=== PATIENT | male | born 1985 | race Caucasian/White ===

== ENCOUNTER 2019-03-08 08:18 | Emergency (ER) | payer BC, MEDICAID, OTHER ==
[2019-03-08] MEDS ORDERED: 0.9 % SODIUM CHLORIDE 1,000 ML BAG IV ONE (08:28)
[2019-03-08 08:36] LABS: BASO % 0.4 % (0-6); EOS % 2.8 % (0-6); GRAN % 71.2 % (47-80); HEMATOCRIT 48.8 % (42.0-52.0); HEMOGLOBIN 16.3 gm/dl (14.0-18.0); LYMPH % 17.6 % (16-45); MEAN CELL VOLUME 87.1 fl (81-97); MEAN CORPUSCULAR HEMOGLOBIN 29.1 pg (27-33); MEAN CORPUSCULAR HGB CONC 33.4 g/dl (32-36); MEAN PLATELET VOLUME 9.5 fl (7.4-10.4); PLATELET COUNT 232 K/uL (130-400); RED CELL DISTRIBUTION WIDTH 12.9 % (11.5-14.5)
--- NOTE | 2019-03-08 08:39 | Emergency Department Record ---
History of Present Illness - General Chief Complaint: Trauma Stated Complaint: FALL Time Seen by Provider: 03/08/19 08:28 Source: Patient, RN notes reviewed - History of Present Illness Initial Comments: Fell out of a tree 2.5 hours ago and walked out of the pedraza with astick and he is complaining of left ankle and left knee pain. No LOC , no head or neck pain and no spine pain no chest of abd pain and he is alert and oriented times 3. Fell 20 to 25 feet. MD Complaint: Fall - Related Data Previous Rx's Medication Instructions Recorded Hydrocodone/Acetaminophen [[place] 1 each PO Q4HR #18 tablet 03/08/19 5-325 Tablet] Ibuprofen [Motrin 600Mg] 600 mg PO Q6H #30 tablet 03/08/19 Allergies Allergy/AdvReac Type Severity Reaction Status Date / Time peanut Allergy PT UNSURE Verified 03/08/19 08:46 OF REACTION shellfish derived Allergy ANAPHYLAXIS Verified 03/08/19 08:43 Review of Systems Reviewed: No additional complaints except as noted below Constitutional: Reports: As per HPI. Denies: Chills, Fever, Malaise, Night sweats, Weakness, Weight change Eyes: Reports: As per HPI. Denies: Eye discharge, Eye pain, Photophobia, Vision change ENT: Reports: As per HPI. Denies: Congestion, Dental pain, Ear pain, Epistaxis, Hearing loss, Throat pain Respiratory: Reports: As per HPI. Denies: Cough, Dyspnea, Hemoptysis, Stridor, Wheezes Cardiovascular: Reports: As per HPI. Denies: Arrhythmia, Chest pain, Dyspnea on exertion, Edema, Murmurs, Orthopnea, Palpitations, Paroxysmal nocturnal dyspnea, Rheumatic Fever, Syncope Endocrine: Reports: As per HPI. Denies: Fatigue, Heat or cold intolerance, Polydipsia, Polyuria Gastrointestinal: Reports: As per HPI. Denies: Abdominal pain, Constipation, Diarrhea, Hematemesis, Hematochezia, Melena, Nausea, Vomiting Genitourinary: Reports: As per HPI. Denies: Dysuria, Frequency, Hematuria, Incontinence, Retention, Testicular pain, Testicular mass, Urgency Musculoskeletal: Reports: As per HPI, Other (left ankle painful and swollen and left knee slightly painful per patient and he denies any dislocations). Denies: Arthralgia, Back pain, Gout, Joint swelling, Myalgia, Neck pain Skin: Reports: As per HPI. Denies: Bruising, Change in color, Change in hair/nails, Lesions, Pruritus, Rash Neurological: Reports: As per HPI. Denies: Abnormal gait, Confusion, Headache, Numbness, Paresthesias, Seizure, Tingling, Tremors, Vertigo, Weakness Psychiatric: Reports: As per HPI. Denies: Anxiety, Auditory hallucinations, Depression, Homicidal thoughts, Suicidal thoughts, Visual hallucinations Hematological/Lymphatic: Reports: As per HPI. Denies: Anemia, Blood Clots, Easy bleeding, Easy bruising, Swollen glands Physical Exam - General General Appearance: Alert, Oriented x3, Cooperative, No acute distress - Head Head exam: Normal inspection - Eye Eye exam: Normal appearance, PERRL Pupils: Normal accommodation - ENT ENT exam: Normal exam, Mucous membranes moist, Normal external ear exam, Normal orophraynx, TM's normal bilaterally Ear exam: Normal external inspection. negative: External canal tenderness Nasal Exam: Normal inspection. negative: Discharge, Sinus tenderness Mouth exam: Normal external inspection, Tongue normal Teeth exam: Normal inspection. negative: Dental caries Throat exam: Normal inspection. negative: Tonsillar erythema, Tonsillar exudate - Neck Neck exam: Normal inspection, Full ROM. negative: Tenderness - Respiratory Respiratory exam: Normal lung sounds bilaterally. negative: Respiratory distress - Cardiovascular Cardiovascular Exam: Regular rate, Normal rhythm, Normal heart sounds - GI/Abdominal GI/Abdominal exam: Soft, Normal bowel sounds. negative: Tenderness - Rectal Rectal exam: Deferred - exam: Deferred - Extremities Extremities exam: Joint swelling (left ankle swollen), Normal capillary refill, Tenderness (left ankle and left knee pain) - Back Back exam: Reports: Normal inspection, Full ROM. Denies: Muscle spasm, Rash noted, Tenderness - Neurological Neurological exam: Alert, Normal gait, Oriented X3, Reflexes normal - Psychiatric Psychiatric exam: Normal affect, Normal mood - Skin Skin exam: Dry, Intact, Normal color, Warm Medical Decision Making - Data Complexity MDM Data: Labs Ordered and/or Reviewed, X-Ray Ordered and/or Reviewed (severe ankle injury medial with widdening of the medial mortise) - Lab Data Result diagrams: 03/08/19 08:30 03/08/19 08:30 Disposition Clinical Impression: Fall Qualifiers: Encounter type: initial encounter Qualified Code(s): W19.XXXA - Unspecified fall, initial encounter Ankle sprain Qualifiers: Encounter type: initial encounter Involved ligament of ankle: deltoid ligament Laterality: left Qualified Code(s): S93.422A - Sprain of deltoid ligament of left ankle, initial encounter Disposition: Home, Self-Care Condition: (1) Good Instructions: Ankle Sprain (ED) Additional Instructions: off work for one week elevate foot follow up with Dr Primitivo lyons Prescriptions: Hydrocodone/Acetaminophen [[place] 5-325 Tablet] 1 each PO Q4HR #18 tablet Ibuprofen [Motrin 600Mg] 600 mg PO Q6H #30 tablet Forms: Patient Portal Access Time of Disposition: 09:50 Quality - Quality Measures Quality Measures: N/A - Blood Pressure Screening Does Patient Have Any of the Following: No Blood Pressure Classification: Pre-Hypertensive BP Reading Systolic Measurement: 146 Diastolic Measurement: 86 Screening for High Blood Pressure: < Pre-Hypertensive BP, F/U Documented > [G8950] Pre-Hypertensive Follow-up Interventions: Referral to alternative/primary care provider.
[2019-03-08 08:48] LABS: BLOOD UREA NITROGEN 14 mg/dL (6-20); CREATININE 0.8 mg/dL (0.7-1.2); EST GLOMERULAR FILTRATION RATE > 60 mL/min
[2019-03-08 08:51] LABS: GLUCOSE,RANDOM 114 mg/dL (74-109)
--- NOTE | 2019-03-08 09:15 | RADIOLOGY REPORT ---
EXAMINATION: Left Ankle, Complete Minimum Three Views EXAM DATE: 03/08/2019 9:08 AM TECHNIQUE: AP, lateral, and oblique INDICATION: Fall, left ankle pain COMPARISON: Left ankle radiographs from 12/12/2010 ENCOUNTER: Initial FINDINGS: Severe medial and mild lateral ankle soft tissue swelling is seen, with what appears to be subcutaneo us edema throughout the distal leg and ankle. Mild enthesopathic spurring at the Achilles insertion i s noted. A 3 mm calcification just medial to the talus is not present previously. No clear donor site is evident. IMPRESSION: 1. Interval medial greater than lateral left ankle soft tissue swelling, with diffuse subcutaneous ed maria luisa not seen previously. Correlate clinically for third spacing, cellulitis, or ligamentous/musculote ndinous injury, although a tiny chip fracture of unclear origin cannot be excluded medial to the talu s on the AP view. Dictated by: Roshan Arzate MD on 03/08/2019 9:08 AM. .
--- NOTE | 2019-03-08 09:18 | RADIOLOGY REPORT ---
EXAMINATION: Left Knee Complete, Four or More Views EXAM DATE: 03/08/2019 9:08 AM TECHNIQUE: Frontal, lateral, oblique and sunrise view INDICATION: Fall, left knee pain COMPARISON: Left femur and tibia/fibula radiographs from 12/12/2010 ENCOUNTER: Initial FINDINGS: Mild medial compartment joint space narrowing is seen. No acute bony process is evident. No significa nt joint effusion is seen. Varicose veins are suspected in the subcutaneous lateral proximal calf. IMPRESSION: 1. Mild medial compartment joint space narrowing, with no clear acute process. Dictated by: Roshan Arzate MD on 03/08/2019 9:13 AM. .
== END 2019-03-08 10:18 | disposition home or self-care (01) ==
LOC: ER 08:18
DX: S93.422A Sprain of deltoid ligament of left ankle, initial encounter (principal); M25.562 Pain in left knee; Y92.828 Other wilderness area as the place of occurrence of the external cause; W14.XXXA Fall from tree, initial encounter
CPT/HCPCS: 80048; 85025; 99285; J7030